=== PATIENT | female | born 1985 | race Hispanic/Latino ===

== ENCOUNTER 2024-01-24 17:51 | Emergency (ER) | payer OTHER ==
[2024-01-24] MEDS ORDERED: DIPHENHYDRAMINE 50 MG/ML VIAL ONE (18:08)
[2024-01-24] MEDS ORDERED: METHYLPREDNISOLONE 125 MG INJ ONE (18:08)
[2024-01-24] MEDS ORDERED: NA CHLORIDE 0.9% 1,000 ML ONE (18:08)
[2024-01-24 18:21] LABS: Specific Gravity < 1.005 (1.005-1.030); Sqamous Epithelial <5 /HPF (None Seen); Urine Bacteria None Seen /HPF (<20); Urine Bilirubin NEGATIVE (Negative); Urine Blood Negative (Negative); Urine Clarity Turbid (Clear); Urine Color Colorless (Yellow); Urine Crystals Unidentified Few /HPF (None Seen); Urine Culture Reflex Order NOT NEEDED; Urine Glucose NEGATIVE (Negative); Urine Ketones NEGATIVE (Negative); Urine Microscopic Reflex YN ORDER UMIC; Urine Nitrite NEGATIVE (Negative); Urine Protein NEGATIVE (Negative); Urine RBC <5 /HPF (None Seen); Urine Urobilinogen Normal (Normal); Urine WBC None Seen /HPF (<5)
[2024-01-24 18:32] LABS: PT Prothrombin Time 11.4 SECONDS (9.4-12.5); Protime INR 1.02
[2024-01-24 18:45] LABS: Absolute Basophils 0.1 K/uL (0-0.5); Absolute Eosinophils 0.3 K/uL (0-0.5); Absolute Monocytes 0.6 K/uL (0.1-1.3); Absolute Neutrophil 5.4 K/uL (1.8-8.0); Basophils % 0.7 % (0-1.3); Eosinophils % 3.3 % (0-4.4); Hemoglobin 11.3 g/dL (12.0-15.0); Lymphocytes % 23.9 % (15.3-44.8); MCH 23.2 pg (27.0-35.0); MCHC 32.3 g/dL (32.0-36.0); MCV 71.7 fL (80-100); Monocytes % 6.8 % (3.3-12.3); Neutrophils % 65.3 % (41.7-73.7); Nucleated Red Blood Cells % 0.1 % (0-0); Platelets 403 thou/uL (152-406); RBC Red Blood Cell Count 4.88 M/uL (3.86-4.86); Red Cell Distribution Width 17.6 % (12.1-15.2)
[2024-01-24 18:50] LABS: ALT/SGPT 21 U/L (13-56); Albumin 3.8 g/dL (3.4-5.0); Alkaline Phosphatase 67 U/L (45-117); Anion Gap 9.5 mEq/L (5.0-15.0); BUN Blood Urea Nitrogen 14 mg/dL (7-18); Bicarbonate 24 mEq/L (21-32); Bilirubin Total 0.2 mg/dL (0.2-1.0); Globulin 3.8 g/dL (2.3-3.5); Glomerular Filtration Rate 109 ml/min (=/>90); Glucose Level 95 mg/dL (74-106); Magnesium 1.9 mg/dL (1.6-2.4); Potassium 3.5 mEq/L (3.5-5.1); Protein, Total 7.6 g/dL (6.4-8.2); Sodium Level 138 mEq/L (136-145); Troponin High Sensitivity 4.5 pg/mL (<58.9)
[2024-01-24 18:55] LABS: AST/SGOT < 10 U/L (15-37); Bilirubin Direct < 0.2 mg/dL (0-0.2)
--- NOTE | 2024-01-24 19:08 | RAD REPORT ---
EXAM: CT brain without contrast HISTORY: NUMBNESS COMPARISON: None TECHNIQUE: Multiple contiguous axial images were obtained and a CT of the brain without contrast. Sag ittal and coronal reformats were performed. One or more of the following dose reduction techniques were used: Automated exposure control, adjust ment of the mA and/or kV according to patient size, and/or iterative reconstruction. FINDINGS: No evidence of hydrocephalus, intracranial hemorrhage, or extra-axial fluid collection. The brain is normal in morphology. No evidence of midline shift or areas of brain edema. The calvarium is intact. The visualized paranasal sinuses and mastoid air cells are essentially clear . IMPRESSION: No evidence of acute intracranial abnormality.
--- NOTE | 2024-01-24 20:28 | ER ---
Nurse's Notes [facility] Name: Nathalie Chou Age: 38 yrs Sex: Female : 1985 Arrival Date: 01/24/2024 Time: 17:51 Bed 8 Private MD: Diagnosis: Allergy, unspecified Presentation: 01/23 17:54 Chief complaint: EMS states: "toned out for left ear pain, tongue itchy, and right mb9 sided facial droop that started at 1630. She was at [facility] and smelled lotions, This all occurred after smelling. States her tongue feels weird, no facial droop noted.". Coronavirus screen: At this time, the client does not indicate any symptoms associated with coronavirus-19. Ebola Screen: No symptoms or risks identified at this time. Initial Sepsis Screen: Does the patient meet any 2 criteria? No. Patient's initial sepsis screen is negative. Does the patient have a suspected source of infection? No. Patient's initial sepsis screen is negative. Risk Assessment: Do you want to hurt yourself or someone else? Patient reports no desire to harm self or others. Onset of symptoms was January 24, 2024. 17:54 Method Of Arrival: EMS: [facility] mb9 17:54 Acuity: NEELAM 3 mb9 Triage Assessment: 18:04 General: Appears in no apparent distress. Behavior is cooperative, anxious. Pain: mb9 Denies pain. EENT: Throat is clear Reports difficulty swallowing. Neuro: Connell Agitation-Sedation Scale (RASS): 0 - Alert and Calm Level of Consciousness is awake, alert, obeys commands, Oriented to person, place, time, situation, Appropriate for age Test And Turn Up Technician are equal bilaterally Moves all extremities. Gait is steady, Speech is normal, Facial symmetry appears normal, Pupils are PERRLA, Intact Numbness in mouth. Cardiovascular: Heart tones S1 S2 present Patient's skin is warm and dry. Respiratory: Airway is patent Respiratory effort is even, unlabored, Respiratory pattern is regular, symmetrical, Breath sounds are clear bilaterally. GI: Abdomen is round non-distended. : No signs and/or symptoms were reported regarding the genitourinary system. Derm: Skin is pink, warm \\T\\ dry. Musculoskeletal: Range of motion: intact in all extremities. Historical: - Allergies: 17:57 No Known Allergies; mb9 - Home Meds: 17:57 None [Active]; mb9 - PMHx: 17:57 None; mb9 - PSHx: 17:57 section; Cholecystectomy; mb9 - Immunization history:: Adult Immunizations up to date. - Infectious Disease History:: Denies. - Social history:: Smoking status: Patient denies any tobacco usage or history of. Screenin:06 [facility] ED Fall Risk Assessment (Adult) History of falling in the last 3 months, mb9 including since admission No falls in past 3 months (0 pts) Confusion or Disorientation No (0 pts) Intoxicated or Sedated No (0 pts) Impaired Gait No (0 pts) Mobility Assist Device Used No (0 pt) Altered Elimination No (0 pt) Score/Fall Risk Level 0 - 2 = Low Risk Oriented to surroundings, Maintained a safe environment, Educated pt \\T\\ family on fall prevention, incl call for assistance when getting out of bed. Abuse screen: Denies threats or abuse. Nutritional screening: No deficits noted. Tuberculosis screening: No symptoms or risk factors identified. Assessment: 18:19 Reassessment: see triage assessment. mb9 19:00 Reassessment: Patient and/or family updated on plan of care and expected duration. Pain br2 level reassessed. Patient is alert, oriented x 3, equal unlabored respirations, skin warm/dry/pink. Patient states feeling better. Patient states symptoms have improved. General: Appears in no apparent distress. comfortable, Behavior is calm, cooperative, drowsy, quiet. Pain: Denies pain. Neuro: Level of Consciousness is awake, alert, obeys commands, Oriented to person, place, time, Speech is normal, Facial symmetry appears normal, Intact. Cardiovascular: Reports None Denies chest pain, shortness of breath, Capillary refill < 3 seconds. Respiratory: Airway is patent Trachea Respiratory effort is even, unlabored. GI: No signs and/or symptoms were reported involving the gastrointestinal system. Abdomen is flat, non-distended. : No signs and/or symptoms were reported regarding the genitourinary system. EENT: No signs and/or symptoms were reported regarding the EENT system. Derm: No signs and/or symptoms reported regarding the dermatologic system. Skin is intact, Skin is dry, Skin is normal, Skin temperature is warm. Musculoskeletal: No signs and/or symptoms reported regarding the musculoskeletal system. Circulation, motion, and sensation intact. Capillary refill < 3 seconds, Range of motion: intact in all extremities. 19:05 Reassessment: No changes from previously documented assessment. Patient and/or family mb9 updated on plan of care and expected duration. Pain level reassessed. Patient is alert, oriented x 3, equal unlabored respirations, skin warm/dry/pink. 20:05 Reassessment: No changes from previously documented assessment. Patient and/or family br2 updated on plan of care and expected duration. Pain level reassessed. Patient is alert, oriented x 3, equal unlabored respirations, skin warm/dry/pink. 21:05 Reassessment: No changes from previously documented assessment. Patient and/or family br2 updated on plan of care and expected duration. Pain level reassessed. Patient is alert, oriented x 3, equal unlabored respirations, skin warm/dry/pink. Patient denies pain at this time. Patient states feeling better. Patient states symptoms have improved. Vital Signs: 17:54 BP 134 / 85; Pulse 88; Resp 18; Pulse Ox 100% on R/A; Weight 79.38 kg; Height 5 ft. 6 mb9 in. ; 19:05 BP 143 / 87; Pulse 82; Resp 18; Pulse Ox 100% on R/A; mb9 20:05 BP 140 / 80; Pulse 80; Resp 18 S; Pulse Ox 100% on R/A; br2 21:00 BP 135 / 78; Pulse 84; Resp 18 S; Pulse Ox 100% on R/A; Pain 0/10; br2 17:54 Body Mass Index 28.25 (79.38 kg, 167.64 cm) mb9 21:00 Pain Scale: Adult br2 ED Course: 17:54 Patient arrived in ED. mb9 17:55 [facility]. cp 17:55 Karlo Funes MD is Attending Physician. cp 17:57 Triage completed. mb9 17:57 Arm band placed on. mb9 18:05 Placed in gown. Bed in low position. Call light in reach. Side rails up X 1. Provided mb9 Education on: press call light if needing anything. Client placed on continuous cardiac and pulse oximetry monitoring. NIBP monitoring applied. court monitor on. 18:11 Urinalysis w/ reflexes Sent. ko1 18:18 Cathi Wood, RN is Primary Nurse. mb9 18:18 Initial lab(s) drawn, by me, sent to lab. Inserted saline lock: 20 gauge in right mb9 antecubital area, using aseptic technique. Blood collected. Flushed with 10 mL NS. 18:27 EKG done, by ED staff, reviewed by Karlo LEACH. mb9 19:03 CT Head Brain wo Cont In Process Unspecified. EDMS 19:20 Report received from juana goldberg. br2 20:04 Primary Nurse role handed off by Cathi Wood RN br2 20:04 Sierra Joshi RN is Primary Nurse. br2 21:05 No provider procedures requiring assistance completed. IV discontinued, intact, No br2 redness/swelling at site. Pressure dressing applied. Administered Medications: 18:18 Drug: diphenhydrAMINE IVP 25 mg IVP once Route: IVP; Site: right antecubital; me1 19:05 Follow up: Response: No adverse reaction br2 18:23 Drug: NS 0.9% IV 1000 ml IV at 1 bolus Per protocol; 1000 mL bolus Route: IV; Rate: 1 me1 bolus; Site: right antecubital; 19:30 Follow up: Response: No adverse reaction; IV Status: Completed infusion; IV Intake: br2 1000ml 18:23 Drug: MethylPrednisoLONE IVP 125 mg IVP once Route: IVP; Site: right antecubital; me1 19:05 Follow up: Response: No adverse reaction br2 Medication: 18:06 VIS not applicable for this client. mb9 Intake: 19:30 IV: 1000ml; Total: 1000ml. br2 Outcome: 20:27 Discharge ordered by . cp 21:05 Discharged to home ambulatory, br2 21:05 Condition: improved 21:05 Discharge instructions given to patient, Instructed on discharge instructions, follow up and referral plans. medication usage, Demonstrated understanding of instructions, follow-up care, medications, Prescriptions given X 3, 21:26 Patient left the ED. br2 Signatures: Dispatcher [employer] EDMS Karlo Neri PA PA cp Oliver, Kathy, RN RN ko1 Cathi Wood, RN ELISE mb9 Marylou Jung RN RN me1 Sierra Joshi, RN RN br2 Corrections: (The following items were deleted from the chart) 18:16 18:11 TEST, SERUM+SC.LAB.ESTELAZ drawn and sent. wilmer HERNÁNDEZ
--- NOTE | 2024-01-24 20:28 | EDPHYS ---
Physician Documentation [facility] Name: Nathalie Chou Age: 38 yrs Sex: Female : 1985 Arrival Date: 01/24/2024 Time: 17:51 Bed 8 Private MD: ED Physician Karlo Funes HPI: 01/23 18:10 This 38 yrs old Female presents to ER via EMS with complaints of Numbness Of Mouth. cp 18:10 Patient is a 38-year-old female who presents to the emergency department with reports cp of itchy tongue, facial tingling and numbness of the mouth that started while she was at [employer]. She reports she smelled some perfume and was eating hot Cheetos when her symptoms started. She reports that she felt like her face was drooping concerned about a possible allergic reaction. She denies any weakness and denies any change in vision, denies any shortness of breath does feel like her throat is tight. Historical: - Allergies: 17:57 No Known Allergies; mb9 - Home Meds: 17:57 None [Active]; mb9 - PMHx: 17:57 None; mb9 - PSHx: 17:57 section; Cholecystectomy; mb9 - Immunization history:: Adult Immunizations up to date. - Infectious Disease History:: Denies. - Social history:: Smoking status: Patient denies any tobacco usage or history of. ROS: 18:15 Constitutional: HX per hpi cp 18:15 Constitutional: Negative for body aches, chills, fever, poor PO intake, cp 18:15 Cardiovascular: Negative for chest pain, palpitations, 18:15 Respiratory: Negative for cough, shortness of breath, wheezing, 18:15 Abdomen/GI: Negative for abdominal pain, vomiting, diarrhea, constipation, 18:15 Neuro: Positive for tingling, Negative for altered mental status, Exam: 18:20 Constitutional: The patient appears in no acute distress, alert, awake, cp non-diaphoretic, non-toxic, well developed, well nourished, 18:20 Head/Face: Normocephalic, atraumatic. cp 18:20 Eyes: Periorbital structures: appear normal, Conjunctiva: normal, no exudate, no injection, Sclera: no appreciated abnormality, Lids and lashes: appear normal, bilaterally, 18:20 ENT: External ear(s): are unremarkable, Nose: is normal, Mouth: Lips: moist, Oral mucosa: pink and intact, moist, Posterior pharynx: Airway: no evidence of obstruction, patent, swelling, no obvious swelling noted, erythema, is not appreciated, exudate, is not appreciated, Voice: is normal, 18:20 Neck: ROM/movement: is normal, is supple, without pain, no range of motions limitations, 18:20 Chest/axilla: Inspection: normal, 18:20 Cardiovascular: Rate: normal, Rhythm: regular, 18:20 Respiratory: the patient does not display signs of respiratory distress, Respirations: normal, no use of accessory muscles, no retractions, labored breathing, is not present, Breath sounds: are clear throughout, no decreased breath sounds, no stridor, no wheezing, 18:20 Abdomen/GI: Inspection: abdomen appears normal, Palpation: abdomen is soft and non-tender, in all quadrants, 18:20 Skin: cellulitis, is not appreciated, no rash present. 18:20 Neuro: Orientation: to person, place \T\ time. Mentation: is normal, Cerebellar function: Romberg testing is negative, Motor: moves all fours, strength is normal, Sensation: tingling, that is mild, of the left side of face, 18:35 ECG was reviewed by the Attending Physician. cp Vital Signs: 17:54 BP 134 / 85; Pulse 88; Resp 18; Pulse Ox 100% on R/A; Weight 79.38 kg; Height 5 ft. 6 mb9 in. ; 19:05 BP 143 / 87; Pulse 82; Resp 18; Pulse Ox 100% on R/A; mb9 20:05 BP 140 / 80; Pulse 80; Resp 18 S; Pulse Ox 100% on R/A; br2 21:00 BP 135 / 78; Pulse 84; Resp 18 S; Pulse Ox 100% on R/A; Pain 0/10; br2 17:54 Body Mass Index 28.25 (79.38 kg, 167.64 cm) mb9 21:00 Pain Scale: Adult br2 MDM: 17:55 Patient medically screened. cp 19:00 Differential diagnosis: CVA, TIA, allergic reaction, cardiac arrhythmia, electrolyte cp abnormality. 20:26 Data reviewed: vital signs, nurses notes, lab test result(s), EKG, radiologic studies, cp CT scan, and as a result, I will discharge patient. 20:26 I considered the following discharge prescriptions or medication management in the emergency department Medications were administered in the Emergency Department. See MAR. Independent interpretation of the following test(s) in the Emergency Department EKG: See my EKG interpretation above. 20:26 Counseling: I had a detailed discussion with the patient and/or guardian regarding the cp historical points, exam findings, and any diagnostic results supporting the discharge/admit diagnosis, lab results, radiology results, the need for outpatient follow up, a family practitioner, to return to the emergency department if symptoms worsen or persist or if there are any questions or concerns that arise at home. Response to treatment: the patient's symptoms have markedly improved after treatment, and as a result, I will discharge patient. 01/23 18:05 Order name: Basic Metabolic Panel; Complete Time: 19:05 cp 01/23 19:05 Interpretation: Normal except: CL 108. cp 01/23 18:05 Order name: CBC with Diff; Complete Time: 19:05 cp 01/23 19:05 Interpretation: Normal except: RBC 4.88; HGB 11.3; HCT 35.0; MCV 71.7; MCH 23.2; RDW cp 17.6. 01/23 18:05 Order name: LFT's; Complete Time: 19:05 cp 01/23 19:06 Interpretation: Normal except: AST < 10; IBILI, CALC 0.0; GLOB 3.8; A/G 1.0. cp 01/23 18:05 Order name: Magnesium; Complete Time: 19:05 cp 01/23 18:05 Order name: PT-INR; Complete Time: 19:05 cp 01/23 18:05 Order name: Troponin HS; Complete Time: 19:05 cp 01/23 19:06 Interpretation: Reviewed. cp 01/23 18:05 Order name: Urinalysis w/ reflexes; Complete Time: 19:05 cp 01/23 18:16 Order name: Test, Urine; Complete Time: 19:05 EDMS 01/23 18:05 Order name: CT Head Brain wo Cont; Complete Time: 19:16 cp 01/23 19:16 Interpretation: Report reviewed. cp 01/23 18:05 Order name: Cardiac monitoring; Complete Time: 18:11 cp 01/23 18:05 Order name: EKG - Nurse/Tech; Complete Time: 18:27 cp 01/23 18:05 Order name: IV Saline Lock; Complete Time: 18:23 cp 01/23 18:05 Order name: Labs collected and sent; Complete Time: 18:23 cp 01/23 18:05 Order name: O2 Per Protocol; Complete Time: 18:11 cp 01/23 18:05 Order name: O2 Sat Monitoring; Complete Time: 18:11 cp EC:35 Rate is 85 beats/min. Rhythm is regular. MI interval is normal. QRS interval is normal. cp QT interval is normal. T waves are Inverted in lead aVR. Interpreted by me. Reviewed by me. Administered Medications: 18:18 Drug: diphenhydrAMINE IVP 25 mg IVP once Route: IVP; Site: right antecubital; me1 19:05 Follow up: Response: No adverse reaction br2 18:23 Drug: NS 0.9% IV 1000 ml IV at 1 bolus Per protocol; 1000 mL bolus Route: IV; Rate: 1 me1 bolus; Site: right antecubital; 19:30 Follow up: Response: No adverse reaction; IV Status: Completed infusion; IV Intake: br2 1000ml 18:23 Drug: MethylPrednisoLONE IVP 125 mg IVP once Route: IVP; Site: right antecubital; me1 19:05 Follow up: Response: No adverse reaction br2 Disposition Summary: 01/24/24 20:27 Discharge Ordered Notes: Location: Home cp Problem: new cp Symptoms: have improved cp Condition: Stable cp Diagnosis - Allergy, unspecified cp Followup: cp - With: Private Physician - When: 2 - 3 days - Reason: Worsening of condition Discharge Instructions: - Discharge Summary Sheet cp - Allergies, Adult cp Forms: - Medication Reconciliation Form cp - Antibiotic Education cp - Prescription Opioid Use cp - Patient Portal Instructions cp - Leadership Thank You Letter cp Prescriptions: - Zyrtec 10 mg Oral Tablet - take 1 tablet ORAL route once daily As needed; 20 tablet; Refills: 0, Product cp Selection Permitted - Medrol (Itz) 4 mg Oral Tablets, Dose Pack - take 1 tablet ORAL route as directed - follow package instructions; 1 packet; cp Refills: 0, Product Selection Permitted - Pepcid 20 mg Oral Tablet - take 1 tablet ORAL route once daily for 10 days; 10 tablet; Refills: 0, Product cp Selection Permitted Signatures: Dispatcher [employer] EDMS Karlo Neri PA PA cp Wilkerson, Mary Beth RN RN mb9 Marylou Jung RN RN me1 Sierra Joshi RN br2 Corrections: (The following items were deleted from the chart) 18:05 18:05 Head Brain Wo Cont+CT.RAD.BRZ ordered. EDMS EDMS 18:16 18:05 TEST, SERUM+SC.LAB.BRZ ordered. EDMS EDMS 01/24 21:19 10 18:55 Constitutional: HX per hpi cp cp
[2024-01-24 21:55] VITALS: O2SAT 100
[2024-01-24 21:56] VITALS: BP 134/85
--- NOTE | 2024-01-27 11:59 | EKG ---
Test Date: 2024-01-24 Test Time: 18:28:05 Muffler Hand: AM MEASUREMENT RESULTS: Intervals: Rate: 85 ME: 152 QRSD: 80 QT: 376 QTc: 447 Kinzers: P: 69 ME: 152 QRS: 43 T: 38 INTERPRETIVE STATEMENTS: Normal sinus rhythm Normal ECG No previous ECG available for comparison Electronically Signed On 01-27-24 11:54:21 CDT by Henry Abraham
== END 2024-01-24 21:26 | disposition home or self-care (01) ==
LOC: ER 17:51
DX: R20.0 Anesthesia of skin (principal); R20.2 Paresthesia of skin; T78.40XA Allergy, unspecified, initial encounter
CPT/HCPCS: 96361; 93005; 85025; 81001; 80048; 36415; 83735; 81025; 85610; 80076; 84484; 70450; 96375; 96374; 99285; J1200; J2919; J7030